=== PATIENT | female | born 1975 | race Two or more races ===

== ENCOUNTER 2023-06-19 13:53 | Outpatient (CLI) | payer MEDICAID, SELFPAY | END 2023-06-19 13:54 | disposition home or self-care (01) | LOC: NFLDREF 06-20 08:14 | PROVIDERS: PCP Physician Assistant; Visit Provider Physician Assistant | DX: R30.0 Dysuria (principal); N39.0 Urinary tract infection, site not specified | CPT/HCPCS: 87086; 87186 ==